=== PATIENT | female | born 1960 | race Caucasian/White ===

== ENCOUNTER → 2017-04-12 | Outpatient (CLI) | payer BC ==
[2017-04-12 21:11] LABS: Basophils % (A) 1 %; CH 29.9; CHCM 32.1; Eosinophils # (A) 0.2 k/uL (0-0.7); Eosinophils % (A) 4 %; HCT 42.6 % (34.0-46.0); HDW 2.31; HGB 13.5 gm/dL (11.4-16.0); Luc # (Auto) 0.11; Luc % (Auto) 3; Lymphocytes # (A) 1.5 k/uL (1.0-4.8); Lymphocytes % (A) 39 %; MCH 29.7 pg (25.0-35.0); MCHC 31.8 g/dL (31.0-37.0); MCV 93.6 fL (80.0-100.0); Monocytes # (A) 0.3 k/uL (0-1.0); Monocytes % (A) 9 %; Neutrophils # (A) 1.7 k/uL (1.3-7.7); Neutrophils % (A) 44 %; RBC 4.55 m/uL (3.80-5.40); RDW 13.9 % (11.5-15.5); WBC 3.8 k/uL (3.8-10.6); WBC (Perox) 3.74
[2017-04-12 21:13] LABS: ALT 36 U/L (9-52); AST 26 U/L (14-36); Alkaline Phosphatase 76 U/L (38-126); Anion Gap 9 mmol/L; Blood Urea Nitrogen 16 mg/dL (7-17); Calcium 9.4 mg/dL (8.4-10.2); Carbon Dioxide 29 mmol/L (22-30); Chloride 103 mmol/L (98-107); Cholesterol 201 mg/dL (<200); Glucose 107 mg/dL (74-99); HDL Cholesterol 78 mg/dL (40-60); Non-African American GFR(MDRD) >60 (>60 ml/min/1.73 sqM); Sodium 141 mmol/L (137-145); Total Bilirubin 0.3 mg/dL (0.2-1.3); Total Protein 6.8 g/dL (6.3-8.2)
== END | disposition home or self-care (01) ==
LOC: MMGSC 14:37
PROVIDERS: ATTEND Family Medicine
DX: Z00.00 Encounter for general adult medical examination without abnormal findings (principal)
CPT/HCPCS: 36415; 80053; 80061; 84439; 84443; 85025

== ENCOUNTER 2022-01-03 11:17 | Day surgery (SDC) | payer BC ==
[2022-01-02 08:41] VITALS: BMI 31.0
--- NOTE | 2022-01-02 08:45 | P.HPOR ---
History of Present Illness H&P Date: 01/02/22 Chief Complaint: Left index finger trigger finger Subjective: This is a 61 year old female that presents today for initial evaluation regarding a several month history of left index finger pain, swelling and locking. She has a history of trigger finger release for her middle and ring fingers which she got great relief from in 2013. She denies any injury or paresthesias or any other symptoms at this time. Physical Examination: LUE: AIN/PIN/Radial/Ulnar/Median motor intact. Radial/Ulnar/Median SILT. 2+/4 Radial/Ulnar pulses palpated. 5/5 APB, 5/5 FDI. Negative Finkelsteins, negative CMC grind, negative Durkan's compression. TTP over A1 sofia of left index finger. Palpable nodule at left index finger A1 sofia with catching associated with flexion/extension. Impression: 1.) Left index finger trigger finger. Plan: Diagnosis and treatment options were discussed with the patient. We discussed steroid injection vs surgery and she states she has tried steroid injections in the past for her other trigger fingers that did not work and were not comfortable and she would like to proceed with A1 sofia release which I am agreeable with. Risks and benefit of surgery including bleeding, infection, damage to surrounding tissue, need for further surgery, residual numbness were discussed and the patient wished to go forward with surgery. Surgical scheduling is initiated for left index finger A1 sofia release. -Nicolas Lomax DO Orthopedic Hand/Upper Extremity Surgeon Past Medical History Past Medical History: Osteoarthritis (OA), Thyroid Disorder Additional Past Medical History / Comment(s): hypothyroid History of Any Multi-Drug Resistant Organisms: None Reported Past Surgical History: Cholecystectomy, Hysterectomy, Orthopedic Surgery, Tonsillectomy Additional Past Surgical History / Comment(s): parathyroid surgery. left hand trigger finger(Ring and middle), Past Anesthesia/Blood Transfusion Reactions: Motion Sickness, Postoperative Nausea & Vomiting (PONV) Smoking Status: Former smoker - Past Family History Mother Family Medical History: No Reported History Medications and Allergies Home Medications Medication Instructions Recorded Confirmed Type Cholecalciferol [Vitamin D3 (125 125 mcg PO DAILY 01/02/22 01/02/22 History Mcg = 5000 Iu)] Fluticasone Nasal [place] [Flonase 1 spray EA NOSTRIL DAILY 01/02/22 01/02/22 History Nasal [place]] Levothyroxine Sodium [Synthroid] 125 mcg PO DAILY 01/02/22 01/02/22 History Multivitamins, Thera [Multivitamin 1 tab PO DAILY 01/02/22 01/02/22 History (formulary)] Vitamin B Complex 1 each PO DAILY 01/02/22 01/02/22 History Vitamin C With Zinc 1 tab PO BID 01/02/22 01/02/22 History traMADol HCL 50 mg PO BID 01/02/22 01/02/22 History Allergies Allergy/AdvReac Type Severity Reaction Status Date / Time strawberry Allergy mouth Verified 01/02/22 08:31 swelling,rash and itching Physical Examination Osteopathic Statement: *. No significant issues noted on an osteopathic structural exam other than those noted in the History and Physical/Consult.
[~2022-01-03 11:17] MED LIST: LACTATED RINGERS 1,000 ML IV SCH; LIDOCAINE 1% (10MG/ML) FOR IV START INTRADERMA PRN; Pre Op ABX Message 1 EACH MISC MISCELLANE ONE
[2022-01-03 11:54] VITALS: RESP 16; TEMP 98.1
[2022-01-03] MEDS ORDERED: ONDANSETRON 4 MG/2 ML VIAL ONE (12:05)
[2022-01-03] MEDS ORDERED: DEXAMETHASONE SOD PHOSPHATE 4 MG/ML 1 ML VIAL IV ONE (12:05)
[2022-01-03] MEDS ORDERED: LIDOCAINE 1% INJ 10MG/ML (20 ML MDV) SQ ONE ×2 (12:08→12:33)
[2022-01-03] MEDS ORDERED: BUPIVACAINE (PF) 0.5% 30 ML VIAL SQ ONE ×2 (12:08→12:33)
[2022-01-03] MEDS ORDERED: MIDAZOLAM 2 MG/2 ML VIAL ONE (12:24)
[2022-01-03] MEDS ORDERED: fentaNYL (PF) 50 MCG/ML 2 ML AMP ONE (12:24)
[2022-01-03] MEDS ORDERED: PROPOFOL 10 MG/ML 20 ML VIAL IV ONE (12:24)
[2022-01-03] MEDS ORDERED: LIDOCAINE 2% INJ 20 MG/ML (2 ML VIAL) ONE (12:24)
--- NOTE | 2022-01-03 12:54 | P.OP ---
Date of Procedure: 01/03/22 Preoperative Diagnosis: Left index finger stenosing tenosynovitis Postoperative Diagnosis: Left index finger stenosing tenosynovitis Procedure(s) Performed: 1.) Left index finger A1 sofia release Anesthesia: MAC Surgeon: Nicolas Lomax Radiology Rn #1: Duy An Estimated Blood Loss (ml): 0 Pathology: none sent Condition: stable Disposition: PACU Description of Procedure: This is a 61 year old female who presents today for a left index finger trigger finger A1 sofia release after having failed conservative treatment. Risks and benefits of surgery were discussed with the patient including bleeding, damage to surrounding tissue, infection, need for further surgery as well as risks of anesthesia including pulmonary embolism and even and the patient wished to proceed with surgical intervention. The patient was seen in the pre-operative area by myself. Consent and H&P were completed and updated. The correct extremity was marked in the pre-operative area by myself and all other questions were answered. Operative Narrative: The patient was brought to the operating room by the department of anesthesia. They remained on the portable stretcher and a rolling hand table was brought to the side of the operative extremity. Pre-operative time out was performed indicating the correct patient, procedure and laterality. All in the room agreed. Pre-operative antibiotics were given prior to skin incision. The patient was then drifted off to sleep by the department of anesthesia. MAC anesthesia was utilized and a 50:50 mixture of 1% Lidocaine and 0.5% bupivacaine was injected into the subcutaneous tissues of the palmar skin, 5ccs total. A nonsterile tourniquet was then applied to the operative extremity and the left upper extremity was then prepped and draped in normal sterile fashion. The operative extremity was the exsanguinated with an esmarch bandage and the tourniquet was inflated to 250mmHg. Oblique incision was made at the base of the left index finger. Blunt dissection was taken down to the level of the A1 sofia. Ragnell retractors were placed both radially and ulnarly to protect neurovascular bundles. Littler tenotomy scissors were then used to release the A1 sofia from proximal to distal under direct visualization. Proximal fascial attachments were released. The tendon was then taken through range of motion and no locking or catching was appreciated. The wound was then closed with interrupted 4-0 nylon sutures in a horizontal mattress fashion. Sterile dressing consisting of adaptic, 4x4s, webril, and an donovan wrap was applied. Tourniquet was let down and the hand was immediately well perfused. The patient was then woken by the department of anesthesia and transferred to PACU in stable condition. Dyu FINN was present for the case to assist in protection of vital neurovascular structures. Nicolas Lomax D.O. Orthopedic Hand/Upper Extremity Surgeon
[2022-01-03 13:25] VITALS: BP 110/71; PULSE 75
== END 2022-01-03 13:55 | disposition home or self-care (01) ==
LOC: OR 11:17
PROVIDERS: ATTEND Orthopaedic Surgery Hand Surgery
DX: M65.322 Trigger finger, left index finger (principal); M65.842 Other synovitis and tenosynovitis, left hand; M19.90 Unspecified osteoarthritis, unspecified site; E03.9 Hypothyroidism, unspecified; Z87.891 Personal history of nicotine dependence; Z90.49 Acquired absence of other specified parts of digestive tract; Z79.51 Long term (current) use of inhaled steroids; Z79.890 Hormone replacement therapy; Z79.899 Other long term (current) drug therapy; Z79.1 Long term (current) use of non-steroidal anti-inflammatories (NSAID); Z91.018 Allergy to other foods
CPT/HCPCS: 26055; J2250; J1100; J2405; J2001 ×2; J3010; J2704

== ENCOUNTER 2022-02-14 12:24 | Day surgery (SDC) | payer BC ==
[2022-02-12 12:36] VITALS: BMI 30.8
--- NOTE | 2022-02-12 13:17 | P.HPOR ---
History of Present Illness H&P Date: 02/12/22 Chief Complaint: Right ring finger trigger finger Subjective: This is a 61 year old female that presents today for a post-operative visit after undergoing left index finger A1 sofia on 01/03/22. She has been doing well and has no concerns. She has noticed the thumb no longer locks or catches. She is also complaining of a right ring finger trigger finger that has been present for several months that she has tried splinting for with no relief. Physical Examination: LUE: AIN/PIN/Radial/Ulnar/Median motor intact. Radial/Ulnar/Median SILT. 2+/4 Radial/Ulnar pulses palpated. Volar incision well healed with nylon sutures intact. RUE: AIN/PIN/Radial/Ulnar/Median motor intact. Radial/Ulnar/Median SILT. 2+/4 Radial/Ulnar pulses palpated. TTP over RRF A1 sofia with locking/catching with passive/active flexion/extension. Impression: 1.) S/P Left index finger A1 sofia release 2.) Right ring finger trigger finger Plan: Diagnosis and treatment options and were discussed with the patient. Suture are removed in office today and she may resume weight bearing as tolerated and is responding well to surgery. She would like to schedule a A1 sofia release for her right ring finger that has failed to respond to conservative treatment. Risks and benefits of surgery including bleeding, infection, damage to surrounding tissue, need for further surgery, residual numbness were discussed and the patient wished to go forward with surgery. -Nicolas Lomax DO Orthopedic Hand/Upper Extremity Surgeon Past Medical History Past Medical History: Thyroid Disorder History of Any Multi-Drug Resistant Organisms: None Reported Past Surgical History: Adenoidectomy, Cholecystectomy, Hysterectomy, Tonsillectomy Additional Past Surgical History / Comment(s): PARATHYROID SURGERY Past Anesthesia/Blood Transfusion Reactions: Motion Sickness, Postoperative Nausea & Vomiting (PONV) Smoking Status: Former smoker - Past Family History Mother Family Medical History: No Reported History Medications and Allergies Home Medications Medication Instructions Recorded Confirmed Type Cholecalciferol [Vitamin D3 (125 125 mcg PO DAILY 01/02/22 02/12/22 History Mcg = 5000 Iu)] Fluticasone Nasal [place] [Flonase 1 spray EA NOSTRIL DAILY 01/02/22 02/12/22 History Nasal [place]] Levothyroxine Sodium [Synthroid] 125 mcg PO DAILY 01/02/22 02/12/22 History Multivitamins, Thera [Multivitamin 1 tab PO DAILY 01/02/22 02/12/22 History (formulary)] Vitamin B Complex 1 each PO DAILY 01/02/22 02/12/22 History Vitamin C With Zinc 1 tab PO BID 01/02/22 02/12/22 History traMADol HCL 50 mg PO BID 01/02/22 02/12/22 History Allergies Allergy/AdvReac Type Severity Reaction Status Date / Time strawberry Allergy mouth Verified 02/12/22 12:13 swelling,rash and itching Physical Examination Osteopathic Statement: *. No significant issues noted on an osteopathic structural exam other than those noted in the History and Physical/Consult.
[~2022-02-14 12:24] MED LIST changes: +HYDROmorphone 0.5 MG/0.5 ML SYRINGE IVP PRN; -LIDOCAINE 1% (10MG/ML) FOR IV START INTRADERMA PRN
[2022-02-14 13:20] VITALS: TEMP 98.3
[2022-02-14] MEDS ORDERED: ONDANSETRON 4 MG/2 ML VIAL IVP ONE (13:24)
[2022-02-14] MEDS ORDERED: LIDOCAINE 1% (10MG/ML) FOR IV START INTRADERMA ONE (13:24)
[2022-02-14] MEDS ORDERED: DEXAMETHASONE SOD PHOSPHATE 4 MG/ML 1 ML VIAL IV ONE (13:25)
[2022-02-14] MEDS ORDERED: MIDAZOLAM 2 MG/2 ML VIAL ONE (13:40)
[2022-02-14] MEDS ORDERED: fentaNYL (PF) 50 MCG/ML 2 ML AMP ONE (13:40)
[2022-02-14] MEDS ORDERED: PROPOFOL 10 MG/ML 20 ML VIAL IV ONE (13:40)
[2022-02-14] MEDS ORDERED: LIDOCAINE 1% INJ 10MG/ML (20 ML MDV) SQ ONE (13:40)
[2022-02-14] MEDS ORDERED: BUPIVACAINE (PF) 0.5% 30 ML VIAL SQ ONE (13:40)
[2022-02-14 14:18] VITALS: BP 106/73; PULSE 74; RESP 20
--- NOTE | 2022-02-15 07:00 | P.OP ---
Date of Procedure: 02/14/22 Preoperative Diagnosis: Right ring finger trigger finger Postoperative Diagnosis: Right ring finger trigger finger Procedure(s) Performed: Right ring finger A1 sofia release Anesthesia: MAC Surgeon: Nicolas Lomax Software Test Technician #1: Duy An Estimated Blood Loss (ml): 0 Pathology: none sent Condition: stable Disposition: PACU Description of Procedure: This is a 62 year old female who presents today for a right ring finger trigger finger A1 sofia release after having failed conservative treatment. Risks and benefits of surgery were discussed with the patient including bleeding, damage to surrounding tissue, infection, need for further surgery as well as risks of anesthesia including pulmonary embolism and even and the patient wished to proceed with surgical intervention. The patient was seen in the pre-operative area by myself. Consent and H&P were completed and updated. The correct extremity was marked in the pre-operative area by myself and all other questions were answered. Operative Narrative: The patient was brought to the operating room by the department of anesthesia. They remained on the portable stretcher and a rolling hand table was brought to the side of the operative extremity. Pre-operative time out was performed indicating the correct patient, procedure and laterality. All in the room agreed. Pre-operative antibiotics were given prior to skin incision. The patient was then drifted off to sleep by the department of anesthesia. MAC anesthesia was utilized and a 50:50 mixture of 1% Lidocaine and 0.5% bupivacaine was injected into the subcutaneous tissues of the palmar skin, 5ccs total. A nonsterile tourniquet was then applied to the operative extremity and the right upper extremity was then prepped and draped in normal sterile fashion. The operative extremity was the exsanguinated with an esmarch bandage and the tourniquet was inflated to 250mmHg. Oblique incision was made at the base of the right ring finger. Blunt dissection was taken down to the level of the A1 sofia. Ragnell retractors were placed both radially and ulnarly to protect neurovascular bundles. Littler tenotomy scissors were then used to release the A1 sofia from proximal to distal under direct visualization. Proximal fascial attachments were released. The tendon was then taken through range of motion and no locking or catching was appreciated. The wound was then closed with interrupted 4-0 nylon sutures in a horizontal mattress fashion. Sterile dressing consisting of adaptic, 4x4s, webril, and an donovan wrap was applied. Tourniquet was let down and the hand was immediately well perfused. The patient was then woken by the department of anesthesia and transferred to PACU in stable condition. Duy An was present for the case to assist in major portions of the case. Nicolas Lomax D.O. Orthopedic Hand/Upper Extremity Surgeon
== END 2022-02-14 14:38 | disposition home or self-care (01) ==
LOC: OR 12:24
PROVIDERS: ATTEND Orthopaedic Surgery Hand Surgery
DX: M65.341 Trigger finger, right ring finger (principal); E07.9 Disorder of thyroid, unspecified; Z91.018 Allergy to other foods; Z79.51 Long term (current) use of inhaled steroids; Z79.890 Hormone replacement therapy; Z79.1 Long term (current) use of non-steroidal anti-inflammatories (NSAID); Z87.891 Personal history of nicotine dependence; Z90.49 Acquired absence of other specified parts of digestive tract
CPT/HCPCS: 26055; J2250; J1100; J2405; J2001; J3010; J2704

== ENCOUNTER 2023-09-25 11:47 | Day surgery (SDC) | payer BC ==
--- NOTE | 2023-09-24 09:50 | P.HPOR ---
History of Present Illness H&P Date: 09/24/23 Subjective: This is a 63 year old female that presents today for initial evaluation regarding 4 month history of progressively worsening left thumb pain with associated locking, catching and clicking and limited range of motion. She has a history of multiple trigger fingers on both hands that responded well to being released in the past. She denies any injury or inciting event. Physical Examination: LUE: AIN/PIN/Radial/Ulnar/Median motor intact. Radial/Ulnar/Median SILT. 2+/4 Radial/Ulnar pulses palpated. 5/5 APB, 5/5 FDI. Negative Finkelsteins, negative CMC grind, negative Durkan's compression. TTP over thumb A1 sofia with locking catching and clicking. Impression: 1.) Left thumb trigger finger Plan: Diagnosis and treatment options were discussed with the patient. She would like to proceed with a left thumb A1 sofia release for her left thumb trigger finger that is incarcerated. Risks and benefits of surgery including bleeding, infection, damage to surrounding tissue, need for further surgery, residual numbness were discussed and the patient wished to go forward with surgery. The patient was agreeable with this plan. CC: Dr Grace Lomax DO Orthopedic Hand/Upper Extremity Surgeon Past Medical History Past Medical History: Thyroid Disorder History of Any Multi-Drug Resistant Organisms: None Reported Past Surgical History: Adenoidectomy, Cholecystectomy, Hysterectomy, Tonsillectomy Additional Past Surgical History / Comment(s): PARATHYROID SURGERY ,lft trigger finger surgery, index and ring, rt ring finger release Past Anesthesia/Blood Transfusion Reactions: Motion Sickness, Postoperative Nausea & Vomiting (PONV) Smoking Status: Former smoker - Past Family History Mother Family Medical History: No Reported History Medications and Allergies Home Medications Medication Instructions Recorded Confirmed Type Cholecalciferol [Vitamin D3 (125 125 mcg PO DAILY 01/02/22 09/19/23 History Mcg = 5000 Iu)] Fluticasone Nasal [place] [Flonase 1 spray EA NOSTRIL DAILY 01/02/22 09/19/23 History Nasal [place]] Levothyroxine Sodium [Synthroid] 125 mcg PO DAILY 01/02/22 09/19/23 History Multivitamins, Thera [Multivitamin 1 tab PO DAILY 01/02/22 09/19/23 History (formulary)] Vitamin B Complex 1 each PO DAILY 01/02/22 09/19/23 History Vitamin C With Zinc 1 tab PO BID 01/02/22 09/19/23 History traMADol HCL 50 mg PO BID 01/02/22 09/19/23 History Allergies Allergy/AdvReac Type Severity Reaction Status Date / Time strawberry Allergy mouth Verified 09/19/23 11:00 swelling,rash and itching Physical Examination Osteopathic Statement: *. No significant issues noted on an osteopathic structural exam other than those noted in the History and Physical/Consult.
[~2023-09-25 11:47] MED LIST changes: -HYDROmorphone 0.5 MG/0.5 ML SYRINGE IVP PRN; -LACTATED RINGERS 1,000 ML IV SCH; +LIDOCAINE 1% (10MG/ML) FOR IV START INTRADERMA PRN
[2023-09-25 12:18] VITALS: RESP 16; TEMP 98.8
[2023-09-25] MEDS: LACTATED RINGERS 1,000 ML IV SCH (12:21)
[2023-09-25] MEDS ORDERED: ONDANSETRON 4 MG/2 ML VIAL ONE (12:27)
[2023-09-25] MEDS: ONDANSETRON 4 MG/2 ML VIAL IVP ONE (12:30)
[2023-09-25] MEDS: DEXAMETHASONE SOD PHOSPHATE 4 MG/ML 1 ML VIAL IVP ONE (12:31)
[2023-09-25] MEDS ORDERED: LIDOCAINE 1% INJ 10MG/ML (20 ML MDV) ONE (12:52)
[2023-09-25] MEDS ORDERED: PROPOFOL 10 MG/ML 20 ML VIAL IV ONE (12:52)
[2023-09-25] MEDS ORDERED: MIDAZOLAM 2 MG/2 ML VIAL ONE (12:52)
[2023-09-25] MEDS ORDERED: fentaNYL (PF) 50 MCG/ML 2 ML AMP ONE (12:52)
[2023-09-25] MEDS: LIDOCAINE 2% INJ 20 MG/ML SQ ONE ×2 (12:56→13:00)
[2023-09-25] MEDS: BUPIVACAINE (PF) 0.5% 30 ML VIAL SQ ONE ×2 (12:56→13:00)
--- NOTE | 2023-09-25 13:17 | P.OP ---
Date of Procedure: 09/25/23 Preoperative Diagnosis: Left thumb trigger finger Postoperative Diagnosis: Left thumb trigger finger Procedure(s) Performed: Left thumb A1 sofia release Anesthesia: MAC Surgeon: Nicolas Lomax Diamond Wheel Molder #1: Duy An Estimated Blood Loss (ml): 0 Pathology: none sent Condition: stable Disposition: PACU Description of Procedure: This is a 63 year old gemale who presents today for a left thumb trigger finger A1 sofia release after having failed conservative treatment. Risks and benefits of surgery were discussed with the patient including bleeding, damage to surrounding tissue, infection, need for further surgery as well as risks of anesthesia including pulmonary embolism and even and the patient wished to proceed with surgical intervention. The patient was seen in the pre-operative area by myself. Consent and H&P were completed and updated. The correct extremity was marked in the pre-operative area by myself and all other questions were answered. Operative Narrative: The patient was brought to the operating room by the department of anesthesia. They remained on the portable stretcher and a rolling hand table was brought to the side of the operative extremity. Pre-operative time out was performed indicating the correct patient, procedure and laterality. All in the room agreed. Pre-operative antibiotics were given prior to skin incision. The patient was then drifted off to sleep by the department of anesthesia. MAC anesthesia was utilized and a 50:50 mixture of 1% Lidocaine and 0.5% bupivacaine was injected into the subcutaneous tissues of the palmar skin, 4 ccs total. A nonsterile tourniquet was then applied to the operative extremity and the operative upper extremity was then prepped and draped in normal sterile fashion. The operative extremity was the exsanguinated with an esmarch bandage and the tourniquet was inflated to 250mmHg. Transverse incision was made at the base of the thumb overlying the A1 sofia. Blunt dissection was taken down to the level of the A1 sofia. Ragnell retractors were placed both radially and ulnarly to protect neurovascular bundles. Littler tenotomy scissors were then used to release the A1 sofia from proximal to distal under direct visualization. Proximal fascial attachments were released. The tendon was then taken through range of motion and no locking or catching was appreciated. The wound was then closed with interrupted 4-0 nylon sutures in a horizontal mattress fashion. Sterile dressing consisting of adaptic, 4x4s, webril, and an donovan wrap was applied. Tourniquet was let down and the hand was immediately well perfused. The patient was then woken by the department of anesthesia and transferred to PACU in stable condition. Duy FINN was present to assist in major portions of the procedure. Nicolas Lomax D.O. Orthopedic Hand/Upper Extremity Surgeon
[2023-09-25 14:00] VITALS: BP 102/69; PULSE 67
== END 2023-09-25 14:06 | disposition home or self-care (01) ==
LOC: OR 11:47
PROVIDERS: ATTEND Orthopaedic Surgery Hand Surgery
DX: M65.312 Trigger thumb, left thumb (principal); E07.9 Disorder of thyroid, unspecified; F10.90 Alcohol use, unspecified, uncomplicated; Z90.710 Acquired absence of both cervix and uterus; Z90.89 Acquired absence of other organs; Z90.49 Acquired absence of other specified parts of digestive tract; Z87.891 Personal history of nicotine dependence; Z79.890 Hormone replacement therapy; Z79.899 Other long term (current) drug therapy; Z91.018 Allergy to other foods
CPT/HCPCS: 26055; J2001 ×2; J2250; J1100; J2405; J3010; J2704; J0665

== ENCOUNTER 2023-11-13 06:25 | Day surgery (SDC) | payer BC ==
--- NOTE | 2023-11-12 09:21 | P.HPOR ---
History of Present Illness H&P Date: 11/12/23 Subjective: This is a 63 year old female that presents today for a post-operative visit after undergoing left thumb A1 sofia release on 09/25/23. She is doing well and has minimal to no pain. She is scheduled for a right middle finger A1 sofia release in November and her symptoms are still present on the right middle finger with locking, catching and clicking. Physical Examination: LUE: AIN/PIN/Radial/Ulnar/Median motor intact. Radial/Ulnar/Median SILT. 2+/4 Radial/Ulnar pulses palpated. Incision healed, smooth gliding of thumb present with flexion/ RUE: AIN/PIN/Radial/Ulnar/Median motor intact. Radial/Ulnar/Median SILT. 2+/4 Radial/Ulnar pulses palpated. TTP over RMF A1 sofia with locking and catching. Impression: 1.) S/P Left thumb A1 sofia release 2.) Right middle finger trigger finger Plan: Diagnosis and treatment options were discussed with the patient. She is responding well to her left thumb A1 sofia release. She wishes to proceed with right middle finger A1 sofia release. Risks and benefits of surgery including bleeding, infection, damage to surrounding tissue, need for further surgery, residual numbness were discussed and the patient wished to go forward with surgery. The patient is agreeable with this plan. -Nicolas Lomax DO Orthopedic Hand/Upper Extremity Surgeon Past Medical History Past Medical History: Thyroid Disorder History of Any Multi-Drug Resistant Organisms: None Reported Past Surgical History: Adenoidectomy, Cholecystectomy, Hysterectomy, Joint Replacement, Tonsillectomy Additional Past Surgical History / Comment(s): PARATHYROID SURGERY, L thumb trigger surgery. Past Anesthesia/Blood Transfusion Reactions: Motion Sickness, Postoperative Nausea & Vomiting (PONV) Smoking Status: Former smoker - Past Family History Mother Family Medical History: No Reported History Father Family Medical History: Pneumonia Additional Family Medical History / Comment(s): Recently from pne. Medications and Allergies Home Medications Medication Instructions Recorded Confirmed Type Cholecalciferol [Vitamin D3 (125 125 mcg PO DAILY 01/02/22 11/11/23 History Mcg = 5000 Iu)] Fluticasone Nasal [place] [Flonase 1 spray EA NOSTRIL DAILY 01/02/22 11/11/23 History Nasal [place]] Levothyroxine Sodium [Synthroid] 125 mcg PO QAM 01/02/22 11/11/23 History Vitamin B Complex 1 each PO DAILY 01/02/22 11/11/23 History Vitamin C With Zinc 1 tab PO BID 01/02/22 11/11/23 History traMADol HCL 50 mg PO BID 01/02/22 11/11/23 History Multivitamins, Thera [Multivitamin 1 tab PO QAM 11/11/23 11/11/23 History (formulary)] Allergies Allergy/AdvReac Type Severity Reaction Status Date / Time strawberry Allergy mouth Verified 11/11/23 10:03 swelling,rash and itching Physical Examination Osteopathic Statement: *. No significant issues noted on an osteopathic structural exam other than those noted in the History and Physical/Consult.
[~2023-11-13 06:25] MED LIST changes: -LIDOCAINE 1% (10MG/ML) FOR IV START INTRADERMA PRN
[2023-11-13] MEDS ORDERED: droPERidol 5 MG/2 ML VIAL IVP ONE (06:28)
[2023-11-13] MEDS: LACTATED RINGERS 1,000 ML IV SCH (06:55)
[2023-11-13] MEDS ORDERED: HYDROmorphone 0.5 MG/0.5 ML SYRINGE IVP PRN (07:00)
[2023-11-13] MEDS: LIDOCAINE 1% (10MG/ML) FOR IV START INTRADERMA PRN (07:07)
[2023-11-13] MEDS: DEXAMETHASONE SOD PHOSPHATE 4 MG/ML 1 ML VIAL IV ONE (07:07)
[2023-11-13] MEDS: ONDANSETRON 4 MG/2 ML VIAL IVP ONE (07:07)
[2023-11-13 07:18] VITALS: TEMP 97.4
[2023-11-13] MEDS ORDERED: PROPOFOL 10 MG/ML 20 ML VIAL IV ONE (07:23)
[2023-11-13] MEDS ORDERED: MIDAZOLAM 2 MG/2 ML VIAL ONE (07:23)
[2023-11-13] MEDS ORDERED: LIDOCAINE 1% INJ 10MG/ML (20 ML MDV) ONE (07:23)
[2023-11-13] MEDS ORDERED: fentaNYL (PF) 50 MCG/ML 2 ML AMP ONE (07:23)
[2023-11-13] MEDS: LIDOCAINE 1% INJ 10MG/ML (20 ML MDV) SQ ONE (07:30)
[2023-11-13] MEDS: BUPIVACAINE (PF) 0.5% 30 ML VIAL SQ ONE (07:30)
--- NOTE | 2023-11-13 08:37 | P.OP ---
Date of Procedure: 11/13/23 Preoperative Diagnosis: Right middle finger trigger finger Postoperative Diagnosis: Right middle finger trigger finger Procedure(s) Performed: Right middle finger A1 sofia release Anesthesia: MAC Surgeon: Nicolas Lomax Grain Drier #1: Duy An Estimated Blood Loss (ml): 0 Pathology: none sent Condition: stable Disposition: PACU Description of Procedure: This is a 63 year old female who presents today for a right middle finger trigger finger A1 sofia release after having failed conservative treatment. Risks and benefits of surgery were discussed with the patient including bleeding, damage to surrounding tissue, infection, need for further surgery as well as risks of anesthesia including pulmonary embolism and even and the patient wished to proceed with surgical intervention. The patient was seen in the pre-operative area by myself. Consent and H&P were completed and updated. The correct extremity was marked in the pre-operative area by myself and all other questions were answered. Operative Narrative: The patient was brought to the operating room by the department of anesthesia. They remained on the portable stretcher and a rolling hand table was brought to the side of the operative extremity. Pre-operative time out was performed indicating the correct patient, procedure and laterality. All in the room agreed. Pre-operative antibiotics were given prior to skin incision. The patient was then drifted off to sleep by the department of anesthesia. MAC anesthesia was utilized and a 50:50 mixture of 1% Lidocaine and 0.5% bupivacaine was injected into the subcutaneous tissues of the palmar skin, 4ccs total. A nonsterile tourniquet was then applied to the operative extremity and the right upper extremity was then prepped and draped in normal sterile fashion. The operative extremity was the exsanguinated with an esmarch bandage and the tourniquet was inflated to 250mmHg. Oblique incision was made at the base of the middle finger. Blunt dissection was taken down to the level of the A1 sofia. Ragnell retractors were placed both radially and ulnarly to protect neurovascular bundles. Littler tenotomy scissors were then used to release the A1 sofia from proximal to distal under direct vi sualization. Proximal fascial attachments were released. The tendon was then taken through range of motion and no locking or catching was appreciated. The wound was then closed with interrupted 4-0 nylon sutures in a horizontal mattress fashion. Sterile dressing consisting of adaptic, 4x4s, webril, and an donovan wrap was applied. Tourniquet was let down and the hand was immediately well perfused. The patient was then woken by the department of anesthesia and transferred to PACU in stable condition. Duy An was present to assist with retraction and manipulation of the hand. Nicolas Lomax D.O. Orthopedic Hand/Upper Extremity Surgeon
[2023-11-13 08:58] VITALS: BP 112/76; PULSE 77; RESP 20
== END 2023-11-13 08:30 | disposition home or self-care (01) ==
LOC: OR 06:25
PROVIDERS: ATTEND Orthopaedic Surgery Hand Surgery
DX: M65.331 Trigger finger, right middle finger (principal); E07.9 Disorder of thyroid, unspecified; Z90.89 Acquired absence of other organs; Z90.49 Acquired absence of other specified parts of digestive tract; Z90.710 Acquired absence of both cervix and uterus; Z87.891 Personal history of nicotine dependence; Z79.899 Other long term (current) drug therapy; Z79.890 Hormone replacement therapy
CPT/HCPCS: 26055; J2250; J1100; J2405; J2001; J3010; J2704; J0665